=== PATIENT | female | born 1970 | race Hispanic/Latino ===

== ENCOUNTER 2017-08-29 09:39 | Emergency (ER) | payer SELFPAY ==
[~2017-08-29] VITALS: Ht 167.6 cm; Wt 90.7 kg
[2017-08-29] MEDS ORDERED: AMPICILLIN TRI500 MG PO (11:23)
--- NOTE | 2017-08-29 11:48 | ED INFLUENZA/URI COMPLAINT ---
History of Present Illness General Chief Complaint: Upper Respiratory Sx/Fever Stated Complaint: BODY ACHES, CONGESTION, EAR PAIN, FEVER,ASCENCIO Source: patient, family, old records Exam Limitations: no limitations Vital Signs & Intake/Output Vital Signs & Intake/Output Vital Signs Date Time Temp Pulse Resp B/P B/P Pulse O2 O2 Flow FiO2 Mean Ox Delivery Rate 08/29 1216 96 Room Air 08/29 0948 98.6 90 18 150/76 97 Room Air Room Air Allergies Coded Allergies: No Known Allergies (08/29/17) Reconcile Medications Albuterol Sulfate (Proair Hfa) 90 MCG HFA.AER.AD 2 PUF INH Q4-6 PRN PRN BRONCHITIS Amoxicillin 500 MG TABLET 1 TAB PO TID SINUSITIS Ampicillin Trihydrate 500 MG CAPSULE 1 CAP PO TID ANTIBIOTIC, INFECTION ( Reported) Guaifenesin/Dextromethorphan (Robitussin Vmdvq-Ijdjo-Kxfb Dm) 200 MG-10 MG CAPSULE 5-10 ML PO Q4-6H PRN COUGH Ibuprofen 600 MG TABLET 1 TAB PO Q6P PRN pain with food Prednisone 20 MG TABLET 1 TAB PO BID SINUSITIS Triage Note: TRIAGE: 47 Y/O FEMALE PRESENTS C/O COUGH SINCE TUESDAY. SPO2 96%, TEMP 98.6. COUGH ACTIVE IN TRIAGE. Triage Nurses Notes Reviewed? yes Onset: Last week Duration: day(s):, constant, continues in ED, getting worse Timing: recent history Severity: moderate, severe Prior Episodes/Possible Cause: illness exposure Modifying Factors: Improves With: rest. Worsens With: movement. Associated Symptoms: cough, facial pain, nasal congestion, shortness of breath, sinus infection LMP (ages 10-50): post menopausal : No Patient currently breastfeeds: No HPI: 5 days prior to admission patient complains of nasal congestion productive cough of green sputum facial pain shortness of breath. She also complains of low- grade fever chills or bodyaches. She denies chest pain nausea vomiting diarrhea abdominal pain dysuria rash bleeding. Past History Travel History Traveled to [place] past 21 day No Medical History Any Pertinent Medical History? see below for history Neurological: NONE EENT: NONE Cardiovascular: NONE Respiratory: NONE Gastrointestinal: NONE Hepatic: NONE Renal: NONE Musculoskeletal: NONE Psychiatric: NONE Endocrine: NONE Blood Disorders: NONE Cancer(s): NONE CHEMICAL PROCESSOR/Reproductive: NONE Other Medical Hx: Sjogren syndrome Surgical History Surgical History: non-contributory Psychosocial History What is your primary language Telugu Tobacco Use: Never used ETOH Use: occasional use Illicit Drug Use: denies illicit drug use Family History Hx Contributory? No Review of Systems Review of Systems Constitutional: Reports: see HPI, chills, fever, malaise. EENTM: Reports: see HPI, nasal congestion. Respiratory: Reports: see HPI, cough, short of breath, sputum production. Cardiovascular: Reports: no symptoms. GI: Reports: no symptoms. Genitourinary: Reports: no symptoms. Musculoskeletal: Reports: no symptoms. Skin: Reports: no symptoms. Neurological/Psychological: Reports: no symptoms. Hematologic/Endocrine: Reports: no symptoms. Immunologic/Allergic: Reports: no symptoms. All Other Systems: Reviewed and Negative Physical Exam Physical Exam General Appearance: well developed/nourished, alert, awake, anxious, moderate distress, obese Head: atraumatic, normal appearance, tenderness (frontal maxillary) Eyes: Bilateral: normal appearance, PERRL, EOMI. Ears, Nose, Throat: moist mucous membrane, nasal congestion, nasal drainage Neck: normal inspection, supple, full range of motion, trachea midline, lymphadenopathy (R), lymphadenopathy (L) Respiratory: chest non-tender, no respiratory distress, quiet respiration, lungs clear, decreased breath sounds Cardiovascular: regular rate/rhythm, normal peripheral pulses, norml femoral pulses equa Peripheral Pulses: 4+ carotid (R), 4+ carotid (L) Gastrointestinal: normal bowel sounds, soft, non-tender, no organomegaly Back: normal inspection, normal range of motion Extremities: normal inspection, normal capillary refill, normal range of motion, no edema Neurologic/Psych: no motor/sensory deficits, awake, alert, oriented x 3, normal gait, normal mood/affect, entry specialists II-XII nml as tested Reflexes: 2+: bicep (R), bicep (L). Skin: intact, normal color, warm/dry Lymphatic: adenopathy Core Measures Sepsis Present: No Sepsis Focused Exam Completed? No Progress Differential Diagnosis: influenza, otitis, pneumonia, sinusitis Plan of Care: Orders Procedure Date/time Status XRY-CHEST XRAY, TWO VIEWS 08/29 1125 Active Diagnostic Imaging: Viewed by Me: Radiology Read. Discussed w/RAD: Radiology Read. CXR Impression: no acute abnormality, no infiltrates, normal size heart, normal mediastinum Initial ED EKG: none Departure Departure Time of Disposition: 1248 Disposition: HOME OR SELF CARE Condition: Stable Clinical Impression Primary Impression: Sinusitis Secondary Impressions: Bronchitis Referrals: Unknown (PCP/Family) Additional Instructions: Afrin 2 sprays 2 times a day for 3 days Departure Forms: Customer Survey General Discharge Information Prescriptions: Current Visit Scripts Ibuprofen 1 TAB PO Q6P PRN pain #50 TAB with food Prednisone 1 TAB PO BID #10 TAB Guaifenesin/Dextromethorphan (Robitussin Dxfxu-Sqaou-Ootc Dm) 5-10 ML PO Q4-6H PRN COUGH #240 ML Amoxicillin 1 TAB PO TID #30 TAB Albuterol Sulfate (Proair Hfa) 2 PUF INH Q4-6 PRN PRN BRONCHITIS #1 INHAL
--- NOTE | 2017-08-29 12:39 | RADIOLOGY REPORT ---
EXAMINATION: XR CHEST CLINICAL INFORMATION: Productive cough. Shortness of breath. Presumptive diagnosis of pneumonia. COMPARISON: None TECHNIQUE: 2 views of the chest were obtained. FINDINGS: The lungs are well-inflated and clear. Trachea is midline in position. No evidence of interstitial disease, focal consolidation, mass, pneumothorax or pleural effusion. The cardiomediastinal silhouette and pulmonary gordy have normal size and contour. The visualized bones are unremarkable. The examined upper abdomen is unremarkable. IMPRESSION: Lungs are clear. No evidence of pneumonia.
[2017-08-29] MEDS ORDERED: ROBITUSSIN COU1 EACH PO ×2 (12:50→13:24)
[2017-08-29] MEDS ORDERED: PROAIR HFA8.5 GM INH ×2 (12:50→13:24)
[2017-08-29] MEDS ORDERED: IBUPROFEN600 M1 PO ×2 (12:50→13:24)
[2017-08-29] MEDS ORDERED: AMOXICILLIN500 M3 PO ×2 (12:50→13:24)
[2017-08-29] MEDS ORDERED: PREDNISONE20 M1 PO ×2 (12:50→13:24)
== END 2017-08-29 13:20 ==
LOC: ERH 09:39
DX: J32.9 Chronic sinusitis, unspecified (principal); J40 Bronchitis, not specified as acute or chronic
CPT/HCPCS: 1263; 71046